=== PATIENT | female | born 1965 | race Caucasian/White ===

== ENCOUNTER 2020-05-17 23:08 | Observation (INO) ==
[2020-05-17] MEDS ORDERED: Famotidine 20 MG/2 ML VIAL IVP ONE (23:32)
[2020-05-17] MEDS ORDERED: methylPREDNISolone 125 MG/2 ML VIAL IVP ONE (23:32)
[2020-05-18 01:51] LABS: Bacteria,Urine Few per hpf (None-Few); Bilirubin,Urine Negative (Negative); Blood,Urine Small (Negative); Clarity,Urine Turbid (Clear); Color,Urine Yellow (Yellow); Glucose,Urine (UA) Normal (Normal); Ketones,Urine Negative (Negative); Leukocyte Esterase,Urine Large (Negative); Mucus,Urine Few per lpf (None-Few); Nitrite,Urine Negative (Negative); PH,Urine 6.5 pH Units (5.0-8.0); Protein,Urine Negative (Neg-Trace); RBC,Urine 0-3 per hpf (0-3); Specific Gravity,Urine 1.015 (1.010-1.025); Squamous Epithelial Cell,Urine Moderate per hpf (None-Few); Urobilinogen,Urine Normal (Normal); WBC,Urine TNTC per hpf (0-3)
[2020-05-18 01:58] LABS: Basophils % 0.4 %; Eosinophils # 0.1 K/mcL (0.0-0.6); Eosinophils % 0.7 %; Hematocrit 43.7 % (35.3-44.9); Hemoglobin 14.4 g/dL (11.5-15.4); Immature Granulocytes % 0.3 % (0-4); Lymphocytes # 0.9 K/mcL (0.6-4.6); Lymphocytes % 12.3 %; Mean Corpuscular Hemoglobin 30.5 pg (28.0-33.3); Mean Corpuscular Volume 92.6 fL (83.0-100.0); Mean Platelet Volume 10.5 fL (9.4-12.4); Monocytes # 0.2 K/mcL (0.0-1.3); Monocytes % 2.6 %; Neutrophils # 6.1 K/mcL (1.6-8.9); Platelet Count 239 K/mcL (140-400); Red Blood Count 4.72 M/mcL (3.82-4.97); Red Cell Distribution Width 12.5 % (11.5-14.5); Segmented Neutrophils % 83.7 %; White Blood Count 7.3 K/mcL (4.3-11.1)
[2020-05-18 02:25] LABS: BUN/Creatinine Ratio 16 (6-26); Blood Urea Nitrogen 14 mg/dL (6-20); Calcium 9.2 mg/dL (8.6-10.3); Carbon Dioxide 22 mEq/L (23-29); Chloride 107 mEq/L (98-107); Glucose 134 mg/dL (70-105); Osmolality,Calculated 290 (280-300); Potassium 4.2 mEq/L (3.5-5.1); Sodium 139 mEq/L (136-145); eGFR For African Americans > 60 (> 60); eGFR For Non-African Americans > 60 (> 60)
[2020-05-18] MEDS ORDERED: Naloxone 0.4 MG/ML INJ IVP PRN (03:08)
[2020-05-18] MEDS ORDERED: Ondansetron ODT 4 MG TAB.RAPDIS SL PRN (03:08)
[2020-05-18] MEDS ORDERED: Acetaminophen 325 MG TABLET PO PRN (03:08)
[2020-05-18 06:18] LABS: Magnesium 1.8 mg/dL (1.6-2.6)
[2020-05-18 07:27] VITALS: BP 122/71
[2020-05-18] MEDS ORDERED: Meropenem 1,000 MG in 0.9 % Sodium Chloride Mini Bag 100 ML IVPB SCH (08:00)
[2020-05-18] MEDS ORDERED: Fosfomycin Tromethamine 3 GM Packet PO ONE (09:30)
== END 2020-05-18 10:51 | disposition home or self-care (01) ==
LOC: 3BNU 23:08 → EMEROOARM 23:08 → SUATTDRO 05-18 02:28 → 3BNU 05-18 03:00
PROVIDERS: ADMIT Student in an Organized Health Care Education/Training Program; ATTEND Internal Medicine

== ENCOUNTER 2020-06-06 19:27 | Inpatient (IN) ==
[2020-06-06 20:03] LABS: Basophils % 0.6 %; Eosinophils % 0.3 %; Hematocrit 38.7 % (35.3-44.9); Hemoglobin 12.9 g/dL (11.5-15.4); Immature Granulocytes % 0.5 % (0-4); Immature Platelets 3.5 % (1.1-6.1); Lymphocytes # 3.9 K/mcL (0.6-4.6); Lymphocytes % 59.7 %; Mean Corpuscular HGB Conc 33.3 g/dL (31.6-35.5); Mean Corpuscular Hemoglobin 29.8 pg (28.0-33.3); Mean Corpuscular Volume 89.4 fL (83.0-100.0); Mean Platelet Volume 10.6 fL (9.4-12.4); Monocytes # 0.4 K/mcL (0.0-1.3); Monocytes % 6.3 %; Platelet Count 130 K/mcL (140-400); Red Blood Count 4.33 M/mcL (3.82-4.97); Segmented Neutrophils % 32.6 %; White Blood Count 6.6 K/mcL (4.3-11.1)
[2020-06-06] MEDS ORDERED: Isovue-370 500 ML BOTTLE IVP ONE (20:05)
[2020-06-06 20:23] LABS: BUN/Creatinine Ratio 9 (6-26); Blood Urea Nitrogen 8 mg/dL (6-20); Calcium 8.5 mg/dL (8.6-10.3); Carbon Dioxide 21 mEq/L (23-29); Chloride 107 mEq/L (98-107); Glucose 131 mg/dL (70-105); Osmolality,Calculated 284 (280-300); Potassium 3.7 mEq/L (3.5-5.1); Sodium 137 mEq/L (136-145); Troponin I < 0.03 ng/mL (< 0.04); eGFR For African Americans > 60 (> 60); eGFR For Non-African Americans > 60 (> 60)
[2020-06-06 20:32] LABS: Alanine Aminotransferase 54 Units/L (7-52); Albumin 3.7 g/dL (3.5-5.7); Albumin/Globulin Ratio 1.2 (1.1-2.2); Alkaline Phosphatase 69 Units/L (34-104); Aspartate Amino Transferase 51 Units/L (13-39); Bilirubin,Direct 0.2 mg/dL (0.0-0.2); Bilirubin,Indirect 0.3 mg/dL (0.0-1.0); Bilirubin,Total 0.5 mg/dL (0.3-1.0); Globulin 3.2 g/dL (2.4-3.5); Magnesium 1.9 mg/dL (1.6-2.6); Phosphorous 2.2 mg/dL (2.7-4.5); Total Protein 6.9 g/dL (6.4-8.9)
[2020-06-06 20:37] LABS: INR 1.2; Prothrombin Time 13.7 Seconds (9.4-12.1)
[2020-06-06 20:39] LABS: Activated Partial Thrombo Time 32.4 Seconds (26.0-36.0)
[2020-06-06] MEDS ORDERED: 0.9 % Sodium Chloride 1,000 ML IVC ONE ×2 (20:52→23:03)
[2020-06-06 20:55] LABS: Neutrophils # 2.2 K/mcL (1.6-8.9)
[2020-06-06 21:00] LABS: Reactive Lymphocytes Present (Not Present); Smudge Cells Present (Not Present)
[2020-06-06 21:01] LABS: Platelet Estimate Slight Decrease (Normal)
[2020-06-06] MEDS ORDERED: Piperacillin/Tazobactam 3.375 GM in Water for inj. (sterile) 20 ML IVP ONE (21:28)
[2020-06-06 21:30] LABS: Bacteria,Urine Few per hpf (None-Few); Mucus,Urine Many per lpf (None-Few); RBC,Urine 15-30 per hpf (0-3); Squamous Epithelial Cell,Urine Moderate per hpf (None-Few); Transitional Epi Cells,Urine Moderate per hpf (None-Few); WBC,Urine TNTC per hpf (0-3)
[2020-06-06] MEDS ORDERED: Ibuprofen 800 MG TABLET PO ONE (21:36)
[2020-06-06] MEDS ORDERED: 0.9 % Sodium Chloride 1,000 ML IVC SCH (23:00)
[2020-06-06] MEDS ORDERED: Naloxone 0.4 MG/ML INJ IVP PRN ×2 (23:00→23:04)
[2020-06-06] MEDS ORDERED: Nitroglycerin 0.4 MG TAB.SUBL SL PRN (23:28)
[2020-06-06] MEDS: Aspirin 81 MG TAB.CHEW PO SCH (23:44)
[2020-06-07 02:39] LABS: Basophils # 0.1 K/mcL (0.0-0.2); Basophils % 1.4 %; Eosinophils % 0.4 %; Hematocrit 35.6 % (35.3-44.9); Hemoglobin 11.5 g/dL (11.5-15.4); Immature Granulocytes % 0.6 % (0-4); Lymphocytes # 2.8 K/mcL (0.6-4.6); Lymphocytes % 57.5 %; Mean Corpuscular HGB Conc 32.3 g/dL (31.6-35.5); Mean Corpuscular Hemoglobin 29.8 pg (28.0-33.3); Mean Corpuscular Volume 92.2 fL (83.0-100.0); Mean Platelet Volume 10.3 fL (9.4-12.4); Monocytes # 0.3 K/mcL (0.0-1.3); Monocytes % 6.2 %; Platelet Count 108 K/mcL (140-400); Red Blood Count 3.86 M/mcL (3.82-4.97); Red Cell Distribution Width 13.2 % (11.5-14.5); Segmented Neutrophils % 33.9 %; White Blood Count 4.9 K/mcL (4.3-11.1)
[2020-06-07 02:40] LABS: Neutrophils # 1.7 K/mcL (1.6-8.9)
[2020-06-07 02:58] LABS: Chol/HDL Ratio 6.6 (0-4.9)
[2020-06-07 02:59] LABS: BUN/Creatinine Ratio 9 (6-26); Blood Urea Nitrogen 8 mg/dL (6-20); Calcium 7.3 mg/dL (8.6-10.3); Carbon Dioxide 22 mEq/L (23-29); Chloride 112 mEq/L (98-107); Glucose 112 mg/dL (70-105); Osmolality,Calculated 289 (280-300); Potassium 3.6 mEq/L (3.5-5.1); Sodium 140 mEq/L (136-145); eGFR For African Americans > 60 (> 60); eGFR For Non-African Americans > 60 (> 60)
[2020-06-07 03:15] LABS: Platelet Estimate Normal (Normal); Reactive Lymphocytes Present (Not Present)
[2020-06-07] MEDS ORDERED: Piperacillin/Tazobactam 3.375 GM in 0.9 % Sodium Chloride Mini Bag 100 ML IVPB SCH (05:00)
[2020-06-07] MEDS: *HR* Heparin 5,000 UNIT/ML VIAL SQ SCH ×2 (05:24→18:23)
[2020-06-07] MEDS ORDERED: Perflutren Lipid Microsphere 1.3 ML in 0.9 % Sodium Chloride 8.7 ML IVP PRN (08:08)
[2020-06-07] MEDS: Aspirin 81 MG TAB.CHEW PO SCH (08:47)
[2020-06-07] MEDS: Acetaminophen 325 MG TABLET PO PRN ×2 (08:53→23:01)
[2020-06-07] MEDS: Ondansetron 4 MG/2 ML VIAL IVP PRN (15:35)
[2020-06-07] MEDS: Amoxicillin/Clavulanate 500 MG TABLET PO SCH (16:23)
[2020-06-07] MEDS: Acetaminophen/Aspirin/Caffeine TABLET PO PRN (16:25)
[2020-06-07] MEDS ORDERED: Prochlorperazine 10 MG/2 ML VIAL IVP ONE (18:49)
[2020-06-08 04:28] LABS: Basophils % 0.7 %; Eosinophils % 0.2 %; Hematocrit 34.2 % (35.3-44.9); Hemoglobin 11.2 g/dL (11.5-15.4); Immature Granulocytes % 0.5 % (0-4); Lymphocytes % 68.5 %; Mean Corpuscular HGB Conc 32.7 g/dL (31.6-35.5); Mean Corpuscular Hemoglobin 29.5 pg (28.0-33.3); Mean Platelet Volume 10.3 fL (9.4-12.4); Monocytes # 0.3 K/mcL (0.0-1.3); Monocytes % 5.6 %; Neutrophils # 1.5 K/mcL (1.6-8.9); Platelet Count 127 K/mcL (140-400); Red Cell Distribution Width 13.2 % (11.5-14.5); Segmented Neutrophils % 24.5 %; White Blood Count 5.9 K/mcL (4.3-11.1)
[2020-06-08 04:46] LABS: BUN/Creatinine Ratio 8 (6-26); Blood Urea Nitrogen 6 mg/dL (6-20); Calcium 7.8 mg/dL (8.6-10.3); Carbon Dioxide 21 mEq/L (23-29); Chloride 108 mEq/L (98-107); Glucose 88 mg/dL (70-105); Osmolality,Calculated 283 (280-300); Potassium 3.3 mEq/L (3.5-5.1); Sodium 138 mEq/L (136-145); eGFR For African Americans > 60 (> 60); eGFR For Non-African Americans > 60 (> 60)
[2020-06-08] MEDS: *HR* Heparin 5,000 UNIT/ML VIAL SQ SCH ×2 (06:26→17:50)
[2020-06-08] MEDS: Aspirin 81 MG TAB.CHEW PO SCH (08:22)
[2020-06-08] MEDS: Amoxicillin/Clavulanate 500 MG TABLET PO SCH ×2 (08:22→16:33)
[2020-06-08] MEDS: Ondansetron 4 MG/2 ML VIAL IVP PRN (08:28)
[2020-06-08] MEDS: Acetaminophen/Aspirin/Caffeine TABLET PO PRN (09:59)
[2020-06-08] MEDS ORDERED: Potassium Chloride Elixir 20 MEQ/15 ML UDC PO ONE (13:10)
[2020-06-08] MEDS: Acetaminophen 325 MG TABLET PO PRN (21:18)
[2020-06-09] MEDS: *HR* Heparin 5,000 UNIT/ML VIAL SQ SCH ×2 (05:48→17:05)
[2020-06-09 06:22] LABS: BUN/Creatinine Ratio 7 (6-26); Blood Urea Nitrogen 6 mg/dL (6-20); Calcium 8.1 mg/dL (8.6-10.3); Carbon Dioxide 24 mEq/L (23-29); Chloride 107 mEq/L (98-107); Glucose 100 mg/dL (70-105); Osmolality,Calculated 284 (280-300); Sodium 138 mEq/L (136-145); eGFR For African Americans > 60 (> 60); eGFR For Non-African Americans > 60 (> 60)
[2020-06-09] MEDS ORDERED: Isovue-370 500 ML BOTTLE IVP ONE (08:19)
[2020-06-09] MEDS: Aspirin 81 MG TAB.CHEW PO SCH (09:12)
[2020-06-09] MEDS: Amoxicillin/Clavulanate 500 MG TABLET PO SCH ×2 (09:12→17:05)
[2020-06-09] MEDS: Ondansetron 4 MG/2 ML VIAL IVP PRN (09:12)
[2020-06-09] MEDS: Acetaminophen 325 MG TABLET PO PRN (19:47)
[2020-06-10] MEDS: *HR* Heparin 5,000 UNIT/ML VIAL SQ SCH (05:36)
[2020-06-10 08:19] VITALS: BP 122/72
[2020-06-10] MEDS: Aspirin 81 MG TAB.CHEW PO SCH (09:00)
[2020-06-10] MEDS: Amoxicillin/Clavulanate 500 MG TABLET PO SCH (09:00)
== END 2020-06-10 10:44 | disposition home or self-care (01) | DRG 872 ==
LOC: 3ANU 19:27 → EMEROOARM 19:27 → SUATTDRO 22:19 → 3ANU 22:46
PROVIDERS: ADMIT Family Medicine; ATTEND Student in an Organized Health Care Education/Training Program